=== PATIENT | male | born 1995 | race Caucasian/White ===

== ENCOUNTER 2017-02-08 02:44 | Emergency (ER) | payer OTHER ==
[~2017-02-08 02:44] MED LIST: OLANZAPINE20 MG PO
== END 2017-02-08 04:00 | disposition home or self-care (01) ==
LOC: SED 02:44
DX: S01.01XA Laceration without foreign body of scalp, initial encounter (principal); F20.9 Schizophrenia, unspecified; W01.0XXA Fall on same level from slipping, tripping and stumbling without subsequent striking against object, initial encounter; Y92.9 Unspecified place or not applicable
CPT/HCPCS: 12001; 99283